=== PATIENT | female | born 1985 | race American Indian/Alaskan Native ===

== ENCOUNTER 2017-08-01 18:05 | Emergency (ER) | payer BC ==
[2017-08-01 19:18] VITALS: RESP 18; O2SAT 99
[2017-08-01] MEDS ORDERED: Tetanus/Diphtheria Toxoids 0.5 ml Syringe IM ONE ×2 (19:22→20:34)
[2017-08-01 19:56] LABS: BASO # 0.1 K/uL (0.0-0.2); BASO % 0.8 % (0.0-2.0); EOS # 0.1 K/uL (0.0-0.7); EOS % 0.9 % (0.0-4.0); HEMATOCRIT 32.2 % (34.0-47.0); LYMPH # 2.6 K/uL (1.0-4.3); LYMPH % 23.6 % (20.0-40.0); MEAN CORPUSCULAR HEMOGLOBIN 28.5 pg (27.0-31.0); MEAN CORPUSCULAR HGB CONC 32.4 g/dL (33.0-37.0); MEAN PLATELET VOLUME 9.1 fL (7.2-11.7); MONO # 0.9 K/uL (0.0-0.8); MONO % 8.4 % (0.0-10.0); RED CELL DISTRIBUTION WIDTH 14.2 % (11.5-14.5)
--- NOTE | 2017-08-01 20:02 | C.PDOC ---
Time Seen by Provider: 08/01/17 18:43 Chief Complaint (Nursing): Needle Stick Past Medical History Vital Signs: Last Vital Signs Temp 98.1 F 08/01/17 19:17 Pulse 83 08/01/17 19:17 Resp 18 08/01/17 19:17 BP 134/77 08/01/17 19:17 Pulse Ox 99 08/01/17 19:17 - Medical History PMH: Atrial Fibrillation, HTN - Social History Hx Alcohol Use: Yes Hx Substance Use: No - Immunization History Hx Tetanus Toxoid Vaccination: No Hx Influenza Vaccination: No Hx Pneumococcal Vaccination: No ED Course And Treatment O2 Sat by Pulse Oximetry: 99 Disposition - Disposition
[2017-08-01 20:05] LABS: CHLORIDE 101 mmol/L (98-107); POTASSIUM 3.7 mmol/L (3.6-5.2); SODIUM 134 mmol/L (132-148)
[2017-08-01 20:07] LABS: ALB/GLOB RATIO 1.4 (1.0-2.1); AMYLASE 58 U/L (30-110); CARBON DIOXIDE 22 mmol/L (22-30); GFR AFRICAN-AMERICAN > 60; TOTAL PROTEIN 7.4 g/dL (6.3-8.3)
[2017-08-01 20:08] LABS: ALKALINE PHOSPHATASE 53 U/L (38-126); ALT/SGPT 23 U/L (9-52); AST/SGOT 16 U/L (14-36); BLOOD UREA NITROGEN 11 mg/dL (7-17); CALCIUM 9.1 mg/dl (8.6-10.4); GLUCOSE,RANDOM 103 mg/dL (65-105)
[2017-08-01] MEDS ORDERED: Emtricitabine-Tenofovir 200 mg-300 mg Tab PO STA (20:12)
[2017-08-01] MEDS ORDERED: Emtricitabine-Tenofovir 200 mg-300 mg Tab PO NR (20:15)
--- NOTE | 2017-08-01 20:15 | C.PDOC ---
History Of Present Illness 32 year old female presents to the ED for evaluation of a needle stick which occurred prior to arrival. Patient had taken her son to the doctor's office to test for his allergies. Patient's son reached into a sharps container that was on the floor and accidentally stuck himself. Patient attempted to pull the intradermal needle away from patient, and ended up striking herself. Patient and her son now presents to the ED for further evaluation. Patient notes she initially had blood on her fingers and denies any other injuries, fever, chills. Time Seen by Provider: 08/01/17 18:43 Chief Complaint (Nursing): Needle Stick History Per: Patient History/Exam Limitations: no limitations Onset/Duration Of Symptoms: Hrs Current Symptoms Are (Timing): Still Present Additional History Per: Patient Past Medical History Reviewed: Historical Data, Nursing Documentation, Vital Signs Vital Signs: Last Vital Signs Temp 98.1 F 08/01/17 19:17 Pulse 83 08/01/17 19:17 Resp 18 08/01/17 19:17 BP 134/77 08/01/17 19:17 Pulse Ox 99 08/01/17 20:57 - Medical History PMH: Atrial Fibrillation, HTN Surgical History: No Surg Hx Family History: States: Unknown Family Hx - Social History Hx Alcohol Use: Yes Hx Substance Use: No - Immunization History Hx Tetanus Toxoid Vaccination: No Hx Influenza Vaccination: No Hx Pneumococcal Vaccination: No Review Of Systems Constitutional: Negative for: Fever, Chills Skin: Positive for: Other (needle stick on finger ) Physical Exam - Physical Exam Appears: Non-toxic, No Acute Distress Skin: Normal Color, Warm, Dry, Other (puncture wound to left 4th finger. no active bleeding ) Extremity: Normal ROM, No Tenderness, Capillary Refill (less than 2 seconds ), No Deformity, No Swelling Neurological/Psych: Oriented x3, Normal Speech, Normal Cognition Gait: Steady ED Course And Treatment - Laboratory Results Result Diagrams: 08/01/17 19:50 08/01/17 19:50 O2 Sat by Pulse Oximetry: 99 (on RA) Pulse Ox Interpretation: Normal Medical Decision Making Medical Decision Making: Progress: Bloodwork and urinalysis ordered and reviewed. Tivicay PO, Truvada PO and Tetanus immunization administered. Disposition Counseled Patient/Family Regarding: Studies Performed, Diagnosis, Need For Followup, Rx Given - Disposition Referrals: Ines Bernabe MD [Staff Provider] - [facility] [Outside] Disposition: HOME/ ROUTINE Disposition Time: 22:58 Condition: STABLE Additional Instructions: Please take medications as prescribed. Follow u with Dr Bernabe or your PMD in 1-2 days. Recommend protected sex until seen by infecitons disease doctor. 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 - Scribe Statement The provider has reviewed the documentation as recorded by the Scribe (Oanh Brunson) All medical record entries made by the Scribe were at my direction and personally dictated by me. I have reviewed the chart and agree that the record accurately reflects my personal performance of the history, physical exam, medical decision making, and the department course for this patient. I have also personally directed, reviewed, and agree with the discharge instructions and disposition.
[2017-08-01 21:11] LABS: RBC URINE 16 /hpf (0-3); URINE BILIRUBIN NEGATIVE (NEGATIVE); URINE BLOOD 3+ (NEGATIVE); URINE COLOR Yellow (YELLOW); URINE GLUCOSE (UA) NORMAL (Normal); URINE KETONE NEGATIVE (NEGATIVE); URINE LEUKOCYTE ESTERASE NEG Leu/uL (Negative); URINE PROTEIN NEGATIVE (NEGATIVE); WBC URINE 2 /hpf (0-5)
[2017-08-02 00:49] VITALS: BP 134/75; PULSE 90; TEMP 98
== END 2017-08-02 00:49 | disposition home or self-care (01) ==
LOC: C.ER 18:05
DX: S61.235A Puncture wound without foreign body of left ring finger without damage to nail, initial encounter (principal); W46.0XXA Contact with hypodermic needle, initial encounter

== ENCOUNTER 2017-09-08 10:43 | Emergency (ER) | payer BC ==
[2017-09-08] MEDS ORDERED: Sodium Chloride 0.9% 1,000 ML IV STA (11:41)
[2017-09-08] MEDS ORDERED: Belladonna-Phenobarbital PO STA (11:41)
[2017-09-08] MEDS ORDERED: Sodium Chloride 0.9% 1,000 ML ONE (11:52)
[2017-09-08] MEDS ORDERED: Belladonna-Phenobarbital ONE (11:52)
[2017-09-08 11:57] LABS: BASO % 0.3 % (0.0-2.0); EOS % 0.3 % (0.0-4.0); HEMATOCRIT 35.4 % (34.0-47.0); LYMPH # 0.6 K/uL (1.0-4.3); LYMPH % 4.9 % (20.0-40.0); MEAN CELL VOLUME 88.3 fL (81.0-99.0); MEAN CORPUSCULAR HEMOGLOBIN 28.3 pg (27.0-31.0); MEAN CORPUSCULAR HGB CONC 32.1 g/dL (33.0-37.0); MEAN PLATELET VOLUME 10.1 fL (7.2-11.7); MONO # 0.6 K/uL (0.0-0.8); MONO % 5.5 % (0.0-10.0); PLATELET COUNT 384 K/uL (130-400); WHITE BLOOD COUNT 11.9 K/uL (4.8-10.8)
[2017-09-08 12:04] LABS: RBC URINE 4 /hpf (0-3); URINE BILIRUBIN NEGATIVE (NEGATIVE); URINE COLOR Yellow (YELLOW); URINE GLUCOSE (UA) NORMAL (Normal); URINE KETONE TRACE mg/dL (NEGATIVE); URINE LEUKOCYTE ESTERASE NEG Leu/uL (Negative); URINE PROTEIN NEGATIVE (NEGATIVE); URINE UROBILINOGEN NORMAL mg/dL (0.2-1.0); WBC URINE < 1 /hpf (0-5)
[2017-09-08 12:05] LABS: URINE BLOOD 1+ (NEGATIVE)
[2017-09-08 12:13] LABS: EOSINOPHIL 1 % (0-4); NEUTROPHIL 76 % (50-75); TOTAL CELLS COUNTED 100
[2017-09-08 12:14] LABS: LARGE PLATELETS PRESENT
[2017-09-08 12:17] LABS: ALKALINE PHOSPHATASE 60 U/L (38-126); ALT/SGPT 39 U/L (9-52); AST/SGOT 21 U/L (14-36); BILIRUBIN,TOTAL 1.3 mg/dL (0.2-1.3); BLOOD UREA NITROGEN 10 mg/dL (7-17); CALCIUM 8.5 mg/dl (8.6-10.4); CARBON DIOXIDE 27 mmol/L (22-30); CHLORIDE 102 mmol/L (98-107); GFR AFRICAN-AMERICAN > 60; GLUCOSE,RANDOM 99 mg/dL (65-105); SODIUM 138 mmol/L (132-148); TOTAL PROTEIN 8.9 g/dL (6.3-8.3)
[2017-09-08 12:22] LABS: ALB/GLOB RATIO 0.9 (1.0-2.1)
[2017-09-08 13:40] VITALS: RESP 16
--- NOTE | 2017-09-08 14:28 | C.PDOC ---
History Of Present Illness 32-year-old female, presents to the emergency department with complaints of abdominal pain. Patient states she has been experiencing non-bilious/non- bilious vomiting and non-bloody/watery diarrhea. Patient notes associated lower abdominal cramps that started yesterday morning. Denies fevers, chills, chest pain, shortness of breath or any other associated symptoms. No other complaints at this time. Time Seen by Provider: 09/08/17 11:10 Chief Complaint (Nursing): Abdominal Pain History Per: Patient History/Exam Limitations: no limitations Current Symptoms Are (Timing): Still Present Severity: Moderate Past Medical History Reviewed: Historical Data, Nursing Documentation, Vital Signs Vital Signs: Last Vital Signs Temp 97.9 F 09/08/17 14:46 Pulse 74 09/08/17 14:46 Resp 16 09/08/17 14:46 BP 140/89 09/08/17 14:46 Pulse Ox 98 09/08/17 15:25 - Medical History PMH: Atrial Fibrillation, HTN Family History: States: No Known Family Hx - Social History Hx Alcohol Use: Yes Hx Substance Use: No - Immunization History Hx Tetanus Toxoid Vaccination: No Hx Influenza Vaccination: No Hx Pneumococcal Vaccination: No Review Of Systems Except As Marked, All Systems Reviewed And Found Negative. Constitutional: Negative for: Fever, Chills Cardiovascular: Negative for: Chest Pain Respiratory: Negative for: Shortness of Breath Gastrointestinal: Positive for: Nausea, Vomiting, Abdominal Pain, Diarrhea Musculoskeletal: Negative for: Back Pain Neurological: Negative for: Weakness, Numbness, Headache, Dizziness Physical Exam - Physical Exam Appears: Non-toxic, No Acute Distress Skin: Warm, Dry, No Rash Head: Atraumatic, Normacephalic Eye(s): bilateral: Normal Inspection, PERRL, EOMI Nose: Normal Oral Mucosa: Moist Lips: Normal Appearing Neck: Normal ROM Cardiovascular: Rhythm Regular, No Murmur Respiratory: Normal Breath Sounds, No Accessory Muscle Use Gastrointestinal/Abdominal: Soft, No Tenderness, No Guarding, No Rebound Extremity: Normal ROM Neurological/Psych: Oriented x3, Normal Speech, Normal Cognition ED Course And Treatment - Laboratory Results Result Diagrams: 09/08/17 11:52 09/08/17 11:52 O2 Sat by Pulse Oximetry: 98 (on RA) Pulse Ox Interpretation: Normal Progress Note: On re-evaluation patient feels better, tolerates po and is stable to be d/c home with PMD follow up. Medical Decision Making Medical Decision Making: Plan: * CMP, Lipase * CBC * , Protonix, IVF, Zofran * UA/HCG * Reassess and Disposition Disposition - Disposition Disposition: HOME/ ROUTINE Disposition Time: 14:25 Condition: STABLE Additional Instructions: Follow up with PMD within 1-2 days. Return to ED within 1-2 days. Prescriptions: Dicyclomine [Bentyl] 20 mg PO TID #30 tab Ondansetron ODT [Zofran ODT] 4 mg PO .Q4-6H PRN #20 odt PRN Reason: Nausea/Vomiting Instructions: Gastroenteritis (ED) Forms: [facility] (Citizen [place]), Work Excuse - Clinical Impression Clinical Impression: Gastroenteritis - Scribe Statement The provider has reviewed the documentation as recorded by the Scribe (Toi Barillas) All medical record entries made by the Scribe were at my direction and personally dictated by me. I have reviewed the chart and agree that the record accurately reflects my personal performance of the history, physical exam, medical decision making, and the department course for this patient. I have also personally directed, reviewed, and agree with the discharge instructions and disposition.
[2017-09-08 14:47] VITALS: BP 140/89; PULSE 74; TEMP 97.9
[2017-09-08 14:55] VITALS: O2SAT 98
== END 2017-09-08 14:50 | disposition home or self-care (01) ==
LOC: C.ER 10:43
DX: K52.9 Noninfective gastroenteritis and colitis, unspecified (principal)
CPT/HCPCS: 80053; 81001; 83690; 84703; 85025; 96361; 96374; 96375; 99285; C9113; J2405; J7040

== ENCOUNTER 2018-07-04 12:41 | Emergency (ER) | payer BC ==
[2018-07-04 13:07] VITALS: TEMP 98.4
[2018-07-04 13:34] LABS: HCG,QUALITATIVE URINE NEGATIVE (NEGATIVE)
[2018-07-04 13:34] LABS: BASO # 0.1 K/uL (0.0-0.2); BASO % 0.8 % (0.0-2.0); EOS # 0.1 K/uL (0.0-0.7); HEMOGLOBIN 11.2 g/dL (11.0-16.0); LYMPH # 1.8 K/uL (1.0-4.3); LYMPH % 18.7 % (20.0-40.0); MEAN CORPUSCULAR HEMOGLOBIN 30.7 pg (27.0-31.0); MEAN PLATELET VOLUME 9.1 fL (7.2-11.7); MONO # 0.9 K/uL (0.0-0.8); MONO % 9.2 % (0.0-10.0); NEUT # 6.8 K/uL (1.8-7.0); NEUT % 70.3 % (50.0-75.0); RBC 3.64 Mil/uL (3.80-5.20); RED CELL DISTRIBUTION WIDTH 13.1 % (11.5-14.5); WHITE BLOOD COUNT 9.6 K/uL (4.8-10.8)
[2018-07-04 13:35] LABS: MEAN CELL VOLUME 90.3 fL (81.0-99.0)
[2018-07-04 13:38] LABS: SQUAMOUS EPITHIAL 3 /hpf (0-5); URINE BACTERIA RARE (<OCC); URINE BILIRUBIN NEGATIVE (NEGATIVE); URINE BLOOD 2+ (NEGATIVE); URINE CLARITY Clear (Clear); URINE COLOR Colorless (YELLOW); URINE GLUCOSE (UA) NORMAL (Normal); URINE LEUKOCYTE ESTERASE NEG Leu/uL (Negative); URINE PROTEIN NEGATIVE (NEGATIVE); URINE UROBILINOGEN NORMAL mg/dL (0.2-1.0)
[2018-07-04 13:47] LABS: ALB/GLOB RATIO 1.3 (1.0-2.1); ALBUMIN 4.3 g/dL (3.5-5.0); ALT/SGPT 22 U/L (9-52); AST/SGOT 15 U/L (14-36); BLOOD UREA NITROGEN 10 mg/dL (7-17); CALCIUM 9.5 mg/dl (8.6-10.4); GFR NON-AFRICAN AMERICAN > 60
--- NOTE | 2018-07-04 14:06 | C.PDOC ---
Time Seen by Provider: 07/04/18 13:02 Chief Complaint (Nursing): Dizziness/Lightheaded Past Medical History Vital Signs: Last Vital Signs Temp 98.4 F 07/04/18 12:49 Pulse 65 07/04/18 12:49 Resp 18 07/04/18 12:49 BP 151/87 H 07/04/18 12:49 Pulse Ox 100 07/04/18 12:49 - Medical History PMH: Atrial Fibrillation, HTN Family History: States: Unknown Family Hx - Social History Hx Alcohol Use: Yes Hx Substance Use: Yes - Immunization History Hx Tetanus Toxoid Vaccination: No Hx Influenza Vaccination: No Hx Pneumococcal Vaccination: No ED Course And Treatment - Laboratory Results Result Diagrams: 07/04/18 13:29 07/04/18 13:29 O2 Sat by Pulse Oximetry: 100 Disposition - Disposition Forms: [employer] [facility] ([place])
--- NOTE | 2018-07-04 14:07 | C.PDOC ---
History Of Present Illness 33-year-old female, PMHx includes Hypertension, presents to the emergency department with complaints of memory loss. 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 Pt states she talked to her boss about it, after which she was referred to ED for further evaluation. States she has not been sleeping recently because she stopped smoking marijuana due to elevated blood pressure. She denies any nausea/vomiting, fever, chills. Time Seen by Provider: 07/04/18 13:02 Chief Complaint (Nursing): Dizziness/Lightheaded History Per: Patient History/Exam Limitations: no limitations Onset/Duration Of Symptoms: Days Current Symptoms Are (Timing): Still Present Past Medical History Reviewed: Historical Data, Nursing Documentation, Vital Signs Vital Signs: Last Vital Signs Temp 98.4 F 07/04/18 12:49 Pulse 65 07/04/18 12:49 Resp 18 07/04/18 12:49 BP 151/87 H 07/04/18 12:49 Pulse Ox 100 07/04/18 12:49 - Medical History PMH: Atrial Fibrillation, HTN Family History: States: No Known Family Hx - Social History Hx Alcohol Use: Yes Hx Substance Use: Yes - Immunization History Hx Tetanus Toxoid Vaccination: No Hx Influenza Vaccination: No Hx Pneumococcal Vaccination: No Review Of Systems Constitutional: Negative for: Fever Cardiovascular: Negative for: Chest Pain Respiratory: Negative for: Shortness of Breath Gastrointestinal: Negative for: Nausea, Vomiting Neurological: Negative for: Weakness, Numbness Physical Exam - Physical Exam Appears: Non-toxic, No Acute Distress Skin: Warm, Dry, No Rash Head: Atraumatic, Normacephalic Eye(s): bilateral: Normal Inspection Nose: Normal Oral Mucosa: Moist Lips: Normal Appearing Neck: Normal ROM Cardiovascular: Rhythm Regular, No Murmur Respiratory: Normal Breath Sounds, No Accessory Muscle Use Gastrointestinal/Abdominal: Soft, No Tenderness Back: Normal Inspection Extremity: Normal ROM, No Deformity Neurological/Psych: Oriented x3, Normal Speech ED Course And Treatment - Laboratory Results Result Diagrams: 07/04/18 13:29 07/04/18 13:29 Lab Interpretation: Normal ECG: Interpreted By Me ECG Rhythm: Sinus Rhythm ECG Interpretation: Normal O2 Sat by Pulse Oximetry: 100 Pulse Ox Interpretation: Normal (RA) - CT Scan/US No standard instances Other Rad Studies (CT/US): Read By Radiologist, Radiology Report Reviewed CT/US Interpretation: FINDINGS: HEMORRHAGE: No intracranial hemorrhage. B RAIN: No mass effect or edema. The paris-white matter differentiation appears intact. VENTRICLES: No hydrocephalus. CALVARIUM: Unremarkable. PARANASAL SINUSES: Unremarkable as visualized. No significant inflammatory changes. MASTOID AIR CELLS: Unremarkable as visualized. No inflammatory changes. OTHER FINDINGS: None. IMPRESSION: No acute intracranial pathology identified. Progress Note: Patient alert in no distress. On re-evaluation alert, ambulating with steady gait, neuro intact Reassessment Condition: Improved Disposition Counseled Patient/Family Regarding: Studies Performed, Diagnosis, Need For Followup, Rx Given - Disposition Referrals: Erasmo Daniel MD [Medical Doctor] - Disposition: HOSPITALIZED Disposition Time: 15:00 Condition: STABLE Additional Instructions: Follow up with your PMD for further evaluation Return to ED if any increase symptoms Instructions: Vertigo (a Type of Dizziness) Forms: [employer] [facility] ([place]) - POA Present On Arrival: None - Clinical Impression Clinical Impression: Dizziness - Scribe Statement The provider has reviewed the documentation as recorded by the Scribe (Toi Barillas) All medical record entries made by the Scribe were at my direction and personally dictated by me. I have reviewed the chart and agree that the record accurately reflects my personal performance of the history, physical exam, medical decision making, and the department course for this patient. I have also personally directed, reviewed, and agree with the discharge instructions and disposition.
[2018-07-04 14:20] VITALS: BP 138/87; PULSE 68; RESP 20
[2018-07-04 14:21] VITALS: O2SAT 100
--- NOTE | 2018-07-04 14:23 | CT ---
Date of service: 07/04/2018 PROCEDURE: CT HEAD WITHOUT CONTRAST. HISTORY: dizziness COMPARISON: None available. TECHNIQUE: Axial computed tomography images were obtained through the head/brain without intravenous contrast. Radiation dose: Total exam DLP = 1061.49 mGy-cm. This CT exam was performed using one or more of the following dose reduction techniques: Automated exposure control, adjustment of the mA and/or kV according to patient size, and/or use of iterative reconstruction technique. FINDINGS: HEMORRHAGE: No intracranial hemorrhage. BRAIN: No mass effect or edema. The paris-white matter differentiation appears intact. VENTRICLES: No hydrocephalus. CALVARIUM: Unremarkable. PARANASAL SINUSES: Unremarkable as visualized. No significant inflammatory changes. MASTOID AIR CELLS: Unremarkable as visualized. No inflammatory changes. OTHER FINDINGS: None. IMPRESSION: No acute intracranial pathology identified.
--- NOTE | 2018-07-07 10:09 | CARD ---
APPROVED REPORT Date of service: 07/04/2018 EKG Measurement Heart [id number] 140P66 [id number] <Conclusion> Normal sinus rhythm Normal ECG
== END 2018-07-04 15:12 | disposition home or self-care (01) ==
LOC: C.ER 12:41
DX: R42 Dizziness and giddiness (principal)

== ENCOUNTER 2018-11-13 05:55 | Day surgery (SDC) | payer BC ==
[2018-11-11 09:04] VITALS: BMI 41.1
[2018-11-13] MEDS ORDERED: Midazolam 2 MG/2 ML VIAL ONE (07:27)
[2018-11-13] MEDS ORDERED: Propofol 10 mg/ml Inj (20 ML) ONE (07:27)
[2018-11-13] MEDS ORDERED: EPINEPHrine 1:1000 Nasal Sol(30mL) ONE (07:29)
[2018-11-13] MEDS ORDERED: ceFAZolin 1 gm in NS 2 GM/200 ML BAG IVPB ONE (07:29)
[2018-11-13] MEDS ORDERED: Lidocaine/Epinephrine 1% 1:100000 10 ML IJ ONE (07:29)
[2018-11-13] MEDS ORDERED: Acetaminophen-Codeine 300/30 mg Tab PO PRN (07:39)
[2018-11-13] MEDS ORDERED: Dextrose 5%/0.45% NS 1,000 ML IV SCH (07:45)
[2018-11-13] MEDS ORDERED: Rocuronium 10 mg/ml (5 ml) ONE (07:46)
[2018-11-13] MEDS ORDERED: Neostigmine 1:1000 (1 mg/ml) Inj ONE (08:47)
[2018-11-13] MEDS ORDERED: DiphenhydrAMINE 50 mg/ml Inj IVP PRN (09:01)
[2018-11-13] MEDS ORDERED: Lactated Ringer's 1,000 ML IV SCH (09:15)
[2018-11-13] MEDS ORDERED: HYDROmorphone 0.5 mg/0.5 ml ISec ONE (09:31)
[2018-11-13] MEDS: HYDROmorphone 0.5 mg/0.5 ml ISec IVP PRN ×2 (09:31→09:53)
[2018-11-13 10:34] VITALS: O2SAT 100
[2018-11-13 12:20] VITALS: RESP 18
[2018-11-13 12:26] VITALS: BP 140/80; PULSE 88; TEMP 98
--- NOTE | 2018-11-13 15:33 | OP ---
PROCEDURE DATE: 11/13/2018 PREOPERATIVE DIAGNOSES: Deviated septum, large turbinates, sinusitis. POSTOPERATIVE DIAGNOSES: Deviated septum, large turbinates, sinusitis. PROCEDURES: Septoplasty, endoscopic bilateral inferior turbinate reduction, endoscopic bilateral maxillary antrostomy, endoscopic bilateral ethmoidectomy. DESCRIPTION OF PROCEDURE: The patient was brought into the room, placed in supine position. Anesthesia was initiated through an ET tube. Adrenaline-soaked pledgets were inserted into nasal cavity. They remained there for 5 minutes and removed. Navigation was set up and used throughout the case in order to ensure that the skull base and orbits were not entered. The patient was draped in the usual manner. The septum was injected with lidocaine with epinephrine on both sides. A Antoine incision was made on the left and mucoperichondrial flap was raised. A vertical incision was made in the cartilage leaving 0.5 cm anterior and superior strut and mucoperichondrial flap was raised on the other side. Deviated portion of the cartilage and bones were removed using forceps and chisel. Quilting suture was used to suture the two flaps together and close the Antoine incision. A 0 degree scope was inserted into the nasal cavity, inferior turbinates were noted to be enlarged and reduced using scissors, going from inferior to superior, anterior to posterior direction on both sides, first on the left, then on the right. Bleeding was controlled using suction cautery. Attention was turned to left and the turbinate was injected with lidocaine with epinephrine and medialized. The uncinate process was medialized using a [place] elevator and removed using forceps. A debrider was used to enter into the ethmoid bulla inferomedially, going posteriorly to the basal lamella anterior and superiorly until the ethmoid bulla was removed. The basal lamella was entered. Posterior ethmoid cells were entered and opened. The skull base was identified and followed anteriorly all the way to the area of anterior ethmoid air cells. Curved suction hooked up to navigation was used to locate the maxillary antrum which was noted to be stenosed and opened using forceps. Bleeding was controlled using adrenaline-soaked pledgets and suction cautery. Attention was turned to the side. The middle turbinate was injected lidocaine with epinephrine and medialized. The uncinate process was medialized using a [place] elevator and removed using forceps. A debrider was used to enter the ethmoid bulla inferomedially going posteriorly to the basal lamella anterior and superiorly until the ethmoid bulla was removed. The basal lamella was entered. Posterior ethmoid cells were entered and opened. The skull base was identified and followed anteriorly all the way to the area of anterior ethmoid air cells. The maxillary antrum was located using curved suction wheel shop supervisor navigation and noted to be stenosed and antrostomy was performed using forceps. Bleeding was controlled using suction cautery and adrenaline-soaked pledgets. Stents were placed. Splints were placed. The patient was taken off anesthesia and taken to recovery room in stable manner. Arron Valencia MD
--- NOTE | 2018-11-14 17:34 | CARD ---
APPROVED REPORT Date of service: 11/13/2018 EKG Measurement Heart [id number] CT [id number] <Conclusion> Normal sinus rhythm Normal ECG
== END 2018-11-13 12:46 | disposition home or self-care (01) ==
LOC: C.SDS 05:55
PROVIDERS: ATTEND Otolaryngology
DX: J34.2 Deviated nasal septum (principal); J34.3 Hypertrophy of nasal turbinates; J32.0 Chronic maxillary sinusitis; J32.2 Chronic ethmoidal sinusitis; J34.89 Other specified disorders of nose and nasal sinuses; I10 Essential (primary) hypertension; Z79.82 Long term (current) use of aspirin; Z79.899 Other long term (current) drug therapy
CPT/HCPCS: 30520; 30802; 31240; 31255; 31256; 88304; 93005; J0690; J1100; J1170; J2001; J2250; J2405; J2704; J2710; J3010

== ENCOUNTER 2019-02-14 08:34 | Outpatient (CLI) | payer BC | END 2019-02-14 08:35 | disposition home or self-care (01) | LOC: C.CTH 08:34 ==